=== PATIENT | female | born 1960 | race Caucasian/White ===

== ENCOUNTER 2020-12-11 05:25 | Emergency (ER) | payer MEDICARE, MEDICAID ==
[2020-12-11] MEDS ORDERED: Meclizine HCl 25 MG TAB ONE (06:21)
[2020-12-11 06:24] LABS: Bilirubin Negative (Negative); Blood, Urine Small (Negative); Clarity Clear (Clear); Glucose, Urine (Dipstick) Negative (Negative); Ketone, Urine Negative (Negative); Leukocyte Negative (Negative); Nitrite Negative (Negative); Protein, Urine (Dipstick) Negative (Neg-Trace); Urobilinogen 0.2 mg/dL (Less than 2); pH, Urine 5.5 (5.0-9.0)
[2020-12-11 06:26] LABS: Specific Gravity, Urine 1.005 (1.002-1.036)
[2020-12-11 06:33] LABS: Bacteria/HPF Rare-Few HPF (None Seen); RBC/HPF 0-3 HPF (0-3); Squamous Epithelial 0-3 HPF (0-3); WBC/HPF 0-3 HPF (0-3)
== END 2020-12-11 06:47 | disposition home or self-care (01) ==
LOC: BURERS 05:25
DX: R42 Dizziness and giddiness (principal); R11.0 Nausea
CPT/HCPCS: 81003; 81015; 99284

== ENCOUNTER 2024-10-02 10:56 | Outpatient (CLI) | payer MEDICARE | END 2024-10-02 10:57 | disposition home or self-care (01) | LOC: BURRAD 10:56 | PROVIDERS: ATTEND Family Medicine | DX: M25.561 Pain in right knee (principal); M17.11 Unilateral primary osteoarthritis, right knee ==